=== PATIENT | female | born 1970 | race Caucasian/White ===

== ENCOUNTER 2024-12-06 21:27 | Emergency (ER) | payer SELFPAY ==
[~2024-12-06] VITALS: Ht 170.2 cm; Wt 64.0 kg
[2024-12-06 21:32] VITALS: TEMP 36.5; O2SAT 100
[2024-12-06 22:41] LABS: CLARITY URINE CLEAR (CLEAR); COLOR URINE YELLOW (YELLOW); GLUCOSE URINE NEGATIVE (NEGATIVE); KETONES URINE NEGATIVE (NEGATIVE); LEUKOCYTE ESTERASE URINE NEGATIVE (NEGATIVE); NITRITE URINE NEGATIVE (NEGATIVE); OCCULT BLOOD URINE NEGATIVE (NEGATIVE); PH URINE 7.5 (4.5-8.0); PROTEIN URINE NEGATIVE (NEGATIVE); SPECIFIC GRAVITY URINE 1.005 (1.005-1.030); UROBILINOGEN URINE 0.2 E.U./dL (0.2-1.0)
[2024-12-06 22:50] VITALS: BP 135/54; PULSE 85; RESP 16
[2024-12-06] MEDS: IBUPROFEN 400MG TABLET PO ONE (22:50)
== END 2024-12-06 23:25 | disposition left against medical advice (07) ==
LOC: ER 21:27
DX: K62.89 Other specified diseases of anus and rectum (principal); R10.9 Unspecified abdominal pain; E11.9 Type 2 diabetes mellitus without complications; Z79.899 Other long term (current) drug therapy
CPT/HCPCS: 81003; 99283